=== PATIENT | female | born 1950 | race Caucasian/White ===

== ENCOUNTER → 2016-09-14 | Outpatient (CLI) | payer MEDICARE ==
[~2016-09-14] MED LIST: ASPI-496 PO; ASPI325T4 PO; CALCIUM PO; ESTRADIOL CREAM ICAV; FISH1CAP PO; FLUT9.9S NS; GLUC-88 PO; HYDR2TAB29 PO; IBUP800T PO; LISI1TAB7 PO; TUMERIC PO
== END | disposition home or self-care (01) ==
LOC: CFH 11:30
PROVIDERS: ATTEND Family Medicine
DX: Z12.31 Encounter for screening mammogram for malignant neoplasm of breast (principal); Z80.3 Family history of malignant neoplasm of breast
CPT/HCPCS: G0202